=== PATIENT | female | born 1945 | race Caucasian/White ===

== ENCOUNTER 2020-02-05 05:58 | Day surgery (SDC) | payer MEDICARE ==
[2020-01-31 10:50] LABS: ABSOLUTE EOSINOPHILS # (AUTO) 0.2 10^3/uL (0.0-0.6); ABSOLUTE LYMPHOCYTES (AUTO) 1.6 10^3/uL (0.5-4.7); ABSOLUTE MONOCYTES (AUTO) 0.5 10^3/uL (0.1-1.4); ABSOLUTE NEUT (AUTO) 2.8 10^3/uL (1.7-8.2); BASOPHILS % (AUTO) 0.9 % (0-2); EOSINOPHILS % (AUTO) 3.7 % (0-6); HEMATOCRIT 32.1 % (36.0-47.0); HEMOGLOBIN 10.6 g/dL (12.0-15.5); LYMPHOCYTES % (AUTO) 31.3 % (13-45); MEAN CORPUSCULAR HGB CONC 33.1 g/dL (32.0-36.0); MEAN CORPUSCULAR VOLUME 94 fl (80-97); MONOCYTES % (AUTO) 9.8 % (3-13); PLATELET COUNT 211 10^3/uL (150-450); RED BLOOD COUNT 3.43 10^6/uL (3.72-5.28); RED CELL DISTRIBUTION WIDTH 13.4 % (11.5-14.0); SEGMENTED NEUTROPHILS % (AUTO) 54.3 % (42-78); TOTAL CELLS COUNTED % (AUTO) 100 %; WHITE BLOOD COUNT 5.1 10^3/uL (4.0-10.5)
[2020-01-31 11:02] LABS: INTERNATIONAL RATION (INR) 0.91; PROTHROMBIN TIME 12.5 SEC (11.4-15.4)
[2020-01-31 11:03] LABS: PARTIAL THROMBOPLASTIN TIME 28.1 SEC (23.5-35.8)
[~2020-02-05 05:58] MED LIST: CEFAZOLIN 1 GM/D5W RTU 1 GM/50 ML RTUPB IV PRN; LACTATED RINGERS 1000 ML IV PRN; LIDOCAINE 0.5% INJ-PF (5 MG/ML) 50 ML SDV SUBCUT PRN
[2020-02-05] MEDS ORDERED: KETOROLAC TROMETHAMINE 60 MG/2 ML SDV ONE (06:23)
[2020-02-05] MEDS ORDERED: FENTANYL CITRATE INJ/PF 250 MCG/5 ML AMPULE ONE (06:23)
[2020-02-05] MEDS ORDERED: KETAMINE HCL INJ 500 MG/10 ML VIAL ONE (06:23)
[2020-02-05] MEDS ORDERED: MIDAZOLAM 2 MG/2 ML INJ ONE (06:23)
[2020-02-05] MEDS ORDERED: DEXAMETHASONE SOD PHOSPHATE INJ 4 MG/1 ML VIAL ONE (06:24)
[2020-02-05] MEDS ORDERED: EPHEDRINE SULFATE INJ 50 MG/1 ML AMPULE ONE (06:24)
[2020-02-05] MEDS ORDERED: PROPOFOL INJ 200 MG/20 ML VIAL IV ONE (06:24)
[2020-02-05] MEDS ORDERED: ONDANSETRON HCL INJ/PF 4 MG/2 ML SDV ONE (06:24)
[2020-02-05] MEDS ORDERED: CEFAZOLIN 1 GM/D5W RTU 1 GM/50 ML RTUPB IV ONE (06:36)
[2020-02-05] MEDS ORDERED: BUPIVACAINE HCL 0.25% /EPINEPHRINE INJ/PF 30 ML SDV ONE (07:42)
[2020-02-05] MEDS ORDERED: TRIAMCINOLONE ACETONIDE INJ 40 MG/1 ML VIAL ONE (07:42)
[2020-02-05] MEDS ORDERED: LIDOCAINE 1% INJ-PF (10 MG/ML) 30 ML SDV ONE (07:42)
[2020-02-05] MEDS ORDERED: BACITRACIN ZINC OINTMENT 15 GM ONE (07:42)
[2020-02-05] MEDS ORDERED: SODIUM BICARBONATE 4.2% INJ (2.5 MEQ/5 ML) VIAL ONE (08:05)
[2020-02-05] MEDS ORDERED: FENTANYL CITRATE INJ/PF 100 MCG/2 ML AMPUL IV PRN ×3 (08:33)
[2020-02-05] MEDS ORDERED: DIPHENHYDRAMINE HCL 50 MG/ML VIAL IV PRN (08:33)
[2020-02-05] MEDS ORDERED: PROMETHAZINE HCL INJ 25 MG/1 ML VIAL IV PRN ×2 (08:33)
[2020-02-05] MEDS ORDERED: ONDANSETRON HCL INJ/PF 4 MG/2 ML SDV IV PRN (08:33)
[2020-02-05] MEDS ORDERED: MEPERIDINE HCL/PF INJ 25 MG/1 ML DISP.SYRIN IV PRN (08:33)
--- NOTE | 2020-02-05 09:07 | Operative Report ---
Operative Report DATE OF SURGERY: 02/05/20 PREOPERATIVE DIAGNOSIS: Lumbar spinal stenosis with neurogenic claudication L2-3 POSTOPERATIVE DIAGNOSIS: Same OPERATION: Minimally invasive lumbar decompression using fluoroscopy and epidural epidurography at L2-3 SURGEON: SENA CHURCHILL ANESTHESIA: LMAC TISSUE REMOVED OR ALTERED: Ligamentum flavum and inferior and superior lamina fragments from L2-3 COMPLICATIONS: None ESTIMATED BLOOD LOSS: 5 mL's PROCEDURE: After obtaining informed consent advised the patient of the risk and benefits including serious neurological injury paralysis allergic reaction and aggravation of pain and failure to obtain pain relief she was taken to the operating room. She was placed comfortably in the prone position. MAC anesthesia was administered monitors were applied. She was then prepped with chlorhexidine in the usual fashion with appropriate drying time then draped. Patient was then evaluated under fluoroscopy and counting from the sacrum up as well as the last rib-bearing vertebrae down to the L2-3 space was readily identified. Funk were established for an approach to the L2-3 interspace using a bilateral approach for the mild procedure. Skin was anesthetized bilaterally with 1% lidocaine with bicarb as were the subcutaneous tissues. Small incision was then made at both selected sites and beginning on the left the trocar and stylet were advanced under fluoroscopic guidance to be positioned above the L2-3 interspace in the paramedian location at 2 3. Mild decompression was then proceeded with without difficulty. Would be noted that an epidurogram was established at the beginning of the case using an epidural needle and Omnipaque 180 stating the stenosis at the 2 3 space centrally. When the decompression was completed on the left side this procedure was repeated on the right without difficulty. Suitable fragments of ligament and bone were removed and the epidurography appeared to show improved spread of the contrast. Procedure was terminated. All instrumentation was removed. The [place] was taken down region was cleansed and dried. All wounds were sealed with Dermabond cement and Steri- Strips followed by Telfa and sponge Tegaderms. The patient was then taken to the PACU for further postoperative care and monitoring. She remained jennifer rologically and hemodynamically intact throughout the procedure. End of dictation see that I have a copy of this note
[2020-02-05] MEDS ORDERED: HYDROCODONE/ACETAMINOPHEN 5-325 MG TABLET PO PRN (09:40)
[2020-02-05] MEDS ORDERED: GLYCOPYRROLATE 1 MG/5 ML VIAL ONE (10:53)
[2020-02-05] MEDS ORDERED: NORMAL SALINE INJ/PF 0.9% 10 ML SDV ONE (10:53)
[2020-02-05 11:04] VITALS: BP 122/62
--- NOTE | 2020-02-05 16:58 | RADIOLOGY REPORT (SQ) ---
EXAM DESCRIPTION: L SPINE 2 VIEWS; NO CHG FLUORO IMAGES COMPLETED DATE/TIME: 02/05/2020 12:29 pm REASON FOR STUDY: MINIMALLY INVASIVE LUMBAR DECOMPRESSION ASSISTED WITH FLUORO IN OR M48.062 SPINAL STENOSIS, LUMBAR REGION WITH NEUROGENIC JELLY Z00.6 ENCNTR FOR EXAM FOR NRML CMPRSN AND CTRL IN CLN CL RS Z79.01 ASSISTED (CURRENT) USE OF ANTICOAGULANTS COMPARISON: None. FLUOROSCOPY TIME: 5.5 minutes. 19 images saved to PACS. TECHNIQUE: Intra-operative images acquired during surgical procedure to evaluate progress. NUMBER OF IMAGES: 19 images. LIMITATIONS: None. FINDINGS: Images of the spine acquired during the procedure. IMPRESSION: IMAGE(S) OBTAINED DURING PROCEDURE. COMMENT: Quality ID 145: Final reports for procedures using fluoroscopy that document radiation exp osure indices, or exposure time and number of fluorographic images (if radiation exposure indices are not available) Please consult full operative report of the attending physician for description of the procedure. TECHNICAL DOCUMENTATION: JOB ID: [id number] 2010 [employer]- All Rights Reserved Reading location - IP/workstation name: [email or web address]
--- NOTE | 2020-02-05 16:58 | RADIOLOGY REPORT (SQ) ---
EXAM DESCRIPTION: L SPINE 2 VIEWS; NO CHG FLUORO IMAGES COMPLETED DATE/TIME: 02/05/2020 12:29 pm REASON FOR STUDY: MINIMALLY INVASIVE LUMBAR DECOMPRESSION ASSISTED WITH FLUORO IN OR M48.062 SPINAL STENOSIS, LUMBAR REGION WITH NEUROGENIC JELLY Z00.6 ENCNTR FOR EXAM FOR NRML CMPRSN AND CTRL IN CLN CL RS Z79.01 [facility] (CURRENT) USE OF ANTICOAGULANTS COMPARISON: None. FLUOROSCOPY TIME: 5.5 minutes. 19 images saved to PACS. TECHNIQUE: Intra-operative images acquired during surgical procedure to evaluate progress. NUMBER OF IMAGES: 19 images. LIMITATIONS: None. FINDINGS: Images of the spine acquired during the procedure. IMPRESSION: IMAGE(S) OBTAINED DURING PROCEDURE. COMMENT: Quality ID 145: Final reports for procedures using fluoroscopy that document radiation exp osure indices, or exposure time and number of fluorographic images (if radiation exposure indices are not available) Please consult full operative report of the attending physician for description of the procedure. TECHNICAL DOCUMENTATION: JOB ID: [id number] 2010 [employer]- All Rights Reserved Reading location - IP/workstation name: [email or web address]
== END 2020-02-05 11:00 | disposition home or self-care (01) ==
LOC: OROUT 05:58
PROVIDERS: ATTEND Pain Medicine Interventional Pain Medicine
DX: M48.062 Spinal stenosis, lumbar region with neurogenic claudication (principal); Z00.6 Encounter for examination for normal comparison and control in clinical research program; M19.90 Unspecified osteoarthritis, unspecified site; I10 Essential (primary) hypertension; E07.9 Disorder of thyroid, unspecified; M41.9 Scoliosis, unspecified; Z03.818 Encounter for observation for suspected exposure to other biological agents ruled out; Z79.899 Other long term (current) drug therapy; Z87.891 Personal history of nicotine dependence; Z96.652 Presence of left artificial knee joint
CPT/HCPCS: 36415 ×2; 82947; 84132; 85025; 85610; 85730; 72100; 00630; 0275T; C1889; Q9966; U0003; J2250; J0690; J1100; J3010; J3490 ×5; J2405; J2704; C9803; 630; 87635; J1885; J3301